=== PATIENT | female | born 1985 | race Caucasian/White ===

== ENCOUNTER 2018-06-17 08:59 | Emergency (ER) | payer OTHER ==
[2016-01-30 09:16] VITALS: Wt 59.0 kg
[~2018-06-17 08:59] MED LIST: ADV230RPT INH; ALBU8.5H IH; FLUT16SP19 NS; HYDR2TAB4 PO; IBU800 PO; IBUP800T37 PO; MULT-1335 PO; NIFE20CA8 PO; PREN-67 PO
[2018-06-17 09:30] VITALS: BP 131/95
--- NOTE | 2018-06-17 09:56 | ER Report ---
History and Physical Time Seen By MD: 09:25 Hx. of Stated Complaint: Pt. having RLQ pain, pain 7/10. Pain is dull and constant. Intermittent sharp pains. Denies N/V, afebrile. History of ovarian cysts, but she feels like this is different that her ovarian cyst pain in the past. HPI/ROS CHIEF COMPLAINT: Abdominal pain HISTORY OF PRESENT ILLNESS: 32-year-old female who is status post hysterectomy due to dysfunctional uterine bleeding, presents with right lower abdominal pain that has been intermittent since Monday and constant since 3 in the morning. Patient states that pain is somewhat similar to prior ovarian cyst though now feels different. Pain is always been right lower quadrant, initially intermittent, without clear exacerbating or relieving factors, and has been constant since 3 despite taking 400 mg of ibuprofen at 4 AM. Patient does state this improved the pain somewhat pain is moderately severe. Pain is worse with bumps on the road and walking. She does note some difficulty urinating and increased urinary frequency. Pain does not radiate to the flank. Patient notes no fevers or chills, no nausea or vomiting, but does have anorexia. She has no vaginal bleeding. No change in bowel movements. Last po intake 829. REVIEW OF SYSTEMS: Constitutional: No fever, no chills. Eyes: no blurred vision ENT: No sore throat. Cardiovascular: No chest pain, no palpitations. Respiratory: No cough, no shortness of breath. Gastrointestinal: above Genitourinary: above Musculoskeletal: No back pain. Skin: No rashes. Neurological: No headache. Remainder of the 14 system rev: Yes Allergies: Coded Allergies: blueberry (Verified Allergy, Severe, THROAT SWELLING, RASH, HEADACHE, 06/17/18) raspberry (Verified Allergy, Severe, THROAT SWELLING, HEADACHE, RASH, 06/17/18) adhesive (Verified Allergy, Intermediate, RASH, 06/17/18) codeine (Unverified Allergy, Intermediate, RASH, HIVES, 06/17/18) latex (Unverified Allergy, Intermediate, RASH, HIVES, 06/17/18) acetaminophen (Verified Allergy, Mild, STOMACH CRAMPS, 06/17/18) Home Meds Active Scripts Ibuprofen (IBUPROFEN) 800 Mg Tablet, 1 TAB PO Q8H, #30 TAB Take with food every 8 hours. Prov:KARINA SALCEDO MD 01/30/16 Reported Medications Albuterol Sulfate 90 Mcg/Act (PROAIR HFA 90 MCG/ACT) 8.5 Gm Hfa.aer.ad, 2 PUFF IH DAILY, INHALER 01/27/16 Multivitamin With Minerals (MULTIPLE VITAMIN) 1 Each Tablet, 1 EACH PO DAILY, TAB 01/27/16 Discontinued Reported Medications Fluticasone Prop 50 Mcg Ns (FLONASE 50 MCG NS) 16 Gm Estelline.susp, 2 SPRAYS NS QDAY, BOT 01/27/16 Fluticasone/Salmeterol (ADVAIR HFA 230-21 MCG INHALER) 1 Inh Inh, 2 PUFF INH BID, INH 01/27/16 Discontinued Scripts Hydromorphone Hcl (HYDROMORPHONE HCL) 2 Mg Tablet, 2-4 MG PO Q4H for PAIN, #30 TAB Prov:KARINA SALCEDO MD 01/30/16 Old Medical Records Reviewed: Yes Hx Smoking: Yes (SMOKED 13 YEARS. 1 PACK PER WEEK) Smoking Status: Former Smoker Exposure to Second Hand Smoke?: No Hx Substance Use Disorder: No Hx Alcohol Use: Yes Constitutional Vital Sign - Last 24 Hours 06/17/18 06/17/18 06/17/18 06/17/18 09:05 09:05 09:09 09:14 Temp 98.3 Pulse 74 75 79 Resp 16 B/P (MAP) 124/89 (101) 124/89 Pulse Ox 98 98 99 O2 Delivery Room Air 06/17/18 06/17/18 06/17/18 06/17/18 09:19 09:24 09:29 09:30 Pulse 81 74 83 B/P (MAP) 131/95 (107) Pulse Ox 96 95 95 06/17/18 06/17/18 06/17/18 06/17/18 09:49 09:54 09:59 10:04 Pulse 78 79 77 79 Pulse Ox 95 94 94 94 06/17/18 06/17/18 06/17/18 06/17/18 10:09 10:14 10:34 10:39 Pulse 76 71 88 79 Pulse Ox 93 94 94 93 06/17/18 06/17/18 06/17/18 06/17/18 10:49 10:54 10:59 11:04 Pulse 73 75 78 75 Pulse Ox 94 93 95 93 306/17/18 06/17/18 06/17/18 11:09 11:14 11:19 11:24 Pulse 69 75 80 69 Pulse Ox 93 95 94 92 06/17/18 11:29 Pulse 74 Pulse Ox 95 Physical Exam General Appearance: The patient is alert, has no immediate need for airway protection and no signs of toxicity. Eyes: Pupils equal and round no pallor or injection. ENT, Mouth: Mucous membranes are moist. Respiratory: There are no retractions, lungs are clear to auscultation. Cardiovascular: Regular rate and rhythm. Gastrointestinal: RLQ ttp at mcburney's point with guarding and rebound. No rovsvig's sign, abd otherwise nontender. TTP is worse at mcburney's compared to suprapubic. Neurological: alert, oriented, hernandez Skin: Warm and dry, no rashes. Musculoskeletal: Neck is supple non tender. Extremities are nontender, nonswollen and have full range of motion. R CVAT DIFFERENTIAL DIAGNOSIS: After history and physical exam differential diagnosis was considered for abdominal pain including but not limited to appendicitis, cholecystitis, gastritis and urinary tract infection. Medical Decision Making Data Points Result Diagram: 06/17/18 0945 06/17/18 0945 Laboratory Hematology Test 06/17/18 09:38 06/17/18 09:45 Urine Color Yellow Urine Clarity Clear Urine pH 7.0 pH (4.8-9.5) Urine Specific Carey 1.006 Urine Protein Negative mg/dL (NEGATIVE) Urine Glucose (UA) Negative mg/dL (NEGATIVE) Urine Ketones Negative mg/dL (NEGATIVE) Urine Blood Negative (NEGATIVE) Urine Nitrite Negative (NEGATIVE) Urine Bilirubin Negative (NEGATIVE) Urine Urobilinogen Negative mg/dL (0.2-1.9) Urine Leukocyte Esterase Trace (NEGATIVE) Urine RBC None /HPF (0-2/HPF) Urine WBC 1 /HPF (0-5/HPF) Urine Squamous Epithelial Cells Many /LPF (</=FEW) Urine Amorphous Crystals Few /HPF Urine Bacteria Moderate /HPF (NONE-FEW) Urine Mucus None /HPF (NONE-FEW) Red Blood Count 5.12 M/uL (4.17-5.56) Mean Corpuscular Volume 91.0 fL (80.0-96.0) Mean Corpuscular Hemoglobin 30.8 pg (26.0-33.0) Mean Corpuscular Hemoglobin Concent 33.9 g/dL (32.0-36.0) Red Cell Distribution Width 13.1 % (11.5-14.5) Mean Platelet Volume 9.6 fL (7.2-11.1) Neutrophils (%) (Auto) 60.0 % (39.4-72.5) Lymphocytes (%) (Auto) 29.5 % (17.6-49.6) Monocytes (%) (Auto) 8.1 % (4.1-12.4) Eosinophils (%) (Auto) 1.2 % (0.4-6.7) Basophils (%) (Auto) 1.2 % (0.3-1.4) Nucleated RBC Relative Count (auto) 0.0 /100WBC Neutrophils # (Auto) 4.0 K/uL (2.0-7.4) Lymphocytes # (Auto) 2.0 K/uL (1.3-3.6) Monocytes # (Auto) 0.5 K/uL (0.3-1.0) Eosinophils # (Auto) 0.1 K/uL (0.0-0.5) Basophils # (Auto) 0.1 K/uL (0.0-0.1) Nucleated RBC Absolute Count (auto) 0.00 K/uL Prothrombin Time 12.6 seconds (12.0-14.4) Prothromb Time International Ratio 0.95 Activated Partial Thromboplast Time 30 seconds (23-35) Sodium Level 140 mmol/L (137-145) Potassium Level 3.4 mmol/L (3.5-5.0) Chloride Level 101 mmol/L (98-107) Carbon Dioxide Level 30 mmol/L (22-31) Blood Urea Nitrogen 12 mg/dl (7-18) Creatinine 0.70 mg/dl (0.52-1.04) Glomerular Filtration Rate Calc > 60.0 Random Glucose 79 mg/dl (75-110) Calcium Level 9.9 mg/dl (8.4-10.2) Total Bilirubin 1.8 mg/dl (0.2-1.3) Aspartate Amino Transf (AST/SGOT) 22 U/L (0-35) Alanine Aminotransferase (ALT/SGPT) 23 U/L (0-56) Alkaline Phosphatase 65 U/L (0-126) Total Protein 8.5 g/dl (6.3-8.2) Albumin 5.2 g/dl (3.5-5.0) Chemistry Test 06/17/18 09:38 06/17/18 09:45 Urine Color Yellow Urine Clarity Clear Urine pH 7.0 pH (4.8-9.5) Urine Specific Carey 1.006 Urine Protein Negative mg/dL (NEGATIVE) Urine Glucose (UA) Negative mg/dL (NEGATIVE) Urine Ketones Negative mg/dL (NEGATIVE) Urine Blood Negative (NEGATIVE) Urine Nitrite Negative (NEGATIVE) Urine Bilirubin Negative (NEGATIVE) Urine Urobilinogen Negative mg/dL (0.2-1.9) Urine Leukocyte Esterase Trace (NEGATIVE) Urine RBC None /HPF (0-2/HPF) Urine WBC 1 /HPF (0-5/HPF) Urine Squamous Epithelial Cells Many /LPF (</=FEW) Urine Amorphous Crystals Few /HPF Urine Bacteria Moderate /HPF (NONE-FEW) Urine Mucus None /HPF (NONE-FEW) White Blood Count 6.7 k/uL (4.5-11.0) Red Blood Count 5.12 M/uL (4.17-5.56) Hemoglobin 15.8 g/dL (12.0-16.0) Hematocrit 46.6 % (34.0-47.0) Mean Corpuscular Volume 91.0 fL (80.0-96.0) Mean Corpuscular Hemoglobin 30.8 pg (26.0-33.0) Mean Corpuscular Hemoglobin Concent 33.9 g/dL (32.0-36.0) Red Cell Distribution Width 13.1 % (11.5-14.5) Platelet Count 197 K/uL (150-450) Mean Platelet Volume 9.6 fL (7.2-11.1) Neutrophils (%) (Auto) 60.0 % (39.4-72.5) Lymphocytes (%) (Auto) 29.5 % (17.6-49.6) Monocytes (%) (Auto) 8.1 % (4.1-12.4) Eosinophils (%) (Auto) 1.2 % (0.4-6.7) Basophils (%) (Auto) 1.2 % (0.3-1.4) Nucleated RBC Relative Count (auto) 0.0 /100WBC Neutrophils # (Auto) 4.0 K/uL (2.0-7.4) Lymphocytes # (Auto) 2.0 K/uL (1.3-3.6) Monocytes # (Auto) 0.5 K/uL (0.3-1.0) Eosinophils # (Auto) 0.1 K/uL (0.0-0.5) Basophils # (Auto) 0.1 K/uL (0.0-0.1) Nucleated RBC Absolute Count (auto) 0.00 K/uL Prothrombin Time 12.6 seconds (12.0-14.4) Prothromb Time International Ratio 0.95 Activated Partial Thromboplast Time 30 seconds (23-35) Glomerular Filtration Rate Calc > 60.0 Calcium Level 9.9 mg/dl (8.4-10.2) Total Bilirubin 1.8 mg/dl (0.2-1.3) Aspartate Amino Transf (AST/SGOT) 22 U/L (0-35) Alanine Aminotransferase (ALT/SGPT) 23 U/L (0-56) Alkaline Phosphatase 65 U/L (0-126) Total Protein 8.5 g/dl (6.3-8.2) Albumin 5.2 g/dl (3.5-5.0) Coagulation Test 06/17/18 09:45 Prothrombin Time 12.6 seconds Prothromb Time International Ratio 0.95 Activated Partial Thromboplast Time 30 seconds Urinalysis Test 06/17/18 09:38 Urine Color Yellow Urine Clarity Clear Urine pH 7.0 pH (4.8-9.5) Urine Specific Carey 1.006 Urine Protein Negative mg/dL (NEGATIVE) Urine Glucose (UA) Negative mg/dL (NEGATIVE) Urine Ketones Negative mg/dL (NEGATIVE) Urine Blood Negative (NEGATIVE) Urine Nitrite Negative (NEGATIVE) Urine Bilirubin Negative (NEGATIVE) Urine Urobilinogen Negative mg/dL (0.2-1.9) Urine Leukocyte Esterase Trace (NEGATIVE) Urine RBC None /HPF (0-2/HPF) Urine WBC 1 /HPF (0-5/HPF) Urine Squamous Epithelial Cells Many /LPF (</=FEW) Urine Amorphous Crystals Few /HPF Urine Bacteria Moderate /HPF (NONE-FEW) Urine Mucus None /HPF (NONE-FEW) ED Course/Re-evaluation ED Course 32-year-old female who is status post hysterectomy has had prior ovarian cysts and has right sided pain that she feels is consistent with this. On exam, patient actually has tenderness that is more consistent with location of appendix so I discussed risk and benefits of CT versus ultrasound we elected to CT first but this was unremarkable. Ultrasound is obtained which shows nl ovaries, nl flow. On rpt exam pt with continued ttp but without peritoneal sgs. She is comfortable and bharat po; will d/c with SRP's Decision to Disposition Date: Jun 17, 2018 Decision to Disposition Time: 12:15 Depart Departure Latest Vital Signs Vital Signs Date Time Temp Pulse Resp B/P (MAP) Pulse Ox O2 Delivery O2 Flow Rate FiO2 06/17/18 11:29 74 95 06/17/18 09:30 131/95 (107) 06/17/18 09:05 98.3 16 Room Air Impression: Primary Impression: Abdominal pain Additional Impression: Elevated bilirubin Condition: Improved Disposition: HOME OR SELF-CARE Referrals: KARINA SALCEDO MD (PCP) 2 Days Patient Instructions: Abdominal Pain (ED) Additional Instructions: As we discussed I do not see a clear cause of your pain, so this may be early in process. If the pain worsens, you develop vomiting, fever, or any concerns please return immediately. Of note, though I think unrelated to your pain, your bilirubin level was elevated. Please have your primary care doctor check this in follow-up. Problem Qualifiers Primary Impression: Abdominal pain Abdominal location: right lower quadrant Qualified Codes: R10.31 - Right lower quadrant pain MARISOL HERNANDEZ MD Jun 17, 2018 09:56
[2018-06-17 10:02] LABS: PLATELET COUNT, AUTOMATED 197 K/uL (150-450)
[2018-06-17] MEDS ORDERED: IOPAMIDOL 76% 100 ML INFUS BTL 100 ML ONE (10:06)
[2018-06-17 10:12] LABS: INR 0.95
--- NOTE | 2018-06-17 10:53 | RADIOLOGY IMAGING REPORT ---
FAC[place] [facility] [place] NAME: Malou Moody : 1985 MR: [id number] V: [id number] EXAM DATE: ORDERING PHYSICIAN: MARISOL HERNANDEZ TECHNOLOGIST: Location: [facility] [place] Patient: Malou Moody : 1985 Visit/Account:[id number] Date of Sevice: 06/17/2018 CT ABDOMEN PELVIS W/ CON History: 32-year-old female with abdominal pain. Pain most prominent in the right lower quadrant. Technique: CT images were obtained through the abdomen and pelvis with intravenous contrast using: I sovue-370 100 mls. Coronal and sagittal reformations were then created. One of the following dose optimization techniques was utilized in the performance of this exam: Autom ated exposure control; adjustment of the mA and/or kV according to the patient's size; or use of an i terative reconstruction technique. Specific details can be referenced in the facility's radiology C T exam operational policy. Comparison study: None Findings: Lung bases: Negative Liver: There is no finding of focal lesion in the liver to suggest metastatic disease.There is no hep atic or portal vein thrombosis. Biliary: The gallbladder is unremarkable and there is no gallstone disease or biliary ductal dilatat ion. Spleen: Negative. Adrenals: Negative Pancreas: Negative. Kidneys/genitourinary/retroperitoneum: No findings of a solid or cystic mass. No findings of hydronep hrosis or nephrolithiasis. Bowel/peritoneum/mesentery: There is a normal appendix in the right lower quadrant. There are no dila roshan loops of large or small bowel to suggest ileus or obstruction. There is no diverticulosis or dive rticulitis. Pelvic/genital urinary: The bladder is unremarkable. The uterus is of diminished size suggesting eith er a nulliparous state or prior uterine surgery. There are follicular cysts in both ovaries. There is no fluid in the cul-de-sac. Vessels: Negative. Lymph node: Negative. Body wall/bones: Negative Peritoneal cavity: No findings of ascites or pneumoperitoneum. IMPRESSION: 1. Normal appendix in the right lower quadrant. No findings to explain this patient's abdominal pain. Normal ovaries bilaterally. Report Dictated By: Alexis Schaefer MD at 06/17/2018 10:46 AM Report E-Signed By: Alexis Schaefer MD at 06/17/2018 10:51 AM WSN:[id number]
--- NOTE | 2018-06-17 12:52 | RADIOLOGY IMAGING REPORT ---
FACILITY: [facility] PATIENT NAME: Malou Moody : 1985 MR: [id number] V: [id number] EXAM DATE: [id number] ORDERING PHYSICIAN: MARISOL HERNANDEZ TECHNOLOGIST: Location: [facility] Patient: Malou Moody : 1985 Visit/Account:[id number] Date of Sevice: 06/17/2018 EXAMINATION: Transvaginal pelvic ultrasound with duplex Doppler evaluation 06/17/2018 11:09 AM HISTORY: r adnexal severe ttp, s/p hysterectomy.; LMP: Prior hysterectomy COMPARISON STUDIES: CT today. Pelvic ultrasound 04/29/2010. FINDINGS: Uterus: Surgically absent Ovaries: right ovary 3.1 x 3.2 x 2.3 cm, left ovary 2.1 x 2.4 x 1.3 cm, both normal Blood flow is documented in each ovary by Doppler ultrasound. Adnexa: negative Free pelvic fluid: none IMPRESSION: Unremarkable post hysterectomy transvaginal pelvic ultrasound. No ovarian or adnexal pathology demons trated. Report Dictated By: Saul Bentley MD at 06/17/2018 12:40 PM Report E-Signed By: Saul Bentley MD at 06/17/2018 12:47 PM WSN:[id number]
== END 2018-06-17 12:27 | disposition home or self-care (01) ==
LOC: ER 09:31
DX: R10.31 Right lower quadrant pain (principal); R79.89 Other specified abnormal findings of blood chemistry
CPT/HCPCS: 74177; 76830; 81001; 85025; 85610; 85730; 99284; Q9967; 82040; 82247; 82310; 82374; 82435; 82565; 82947; 84075; 84132; 84155; 84295; 84450; 84460; 84520